=== PATIENT | male | born 1960 | race African-American/Black ===

== ENCOUNTER 2018-10-22 16:46 | Emergency (ER) | payer OTHER ==
[~2018-10-22] VITALS: Ht 162.6 cm; Wt 54.0 kg
[2018-10-22] MEDS ORDERED: IBUPROFEN 800MG TABLET PO ONE (22:00)
[2018-10-23 00:16] VITALS: BP 160/82
== END 2018-10-23 07:08 | disposition home or self-care (01) ==
LOC: ER 20:02
DX: M54.5 Low back pain (principal); X58.XXXA Exposure to other specified factors, initial encounter; Y93.55 Activity, bike riding; Y92.89 Other specified places as the place of occurrence of the external cause
CPT/HCPCS: 99282